=== PATIENT | female | born 1960 | race Caucasian/White ===

== ENCOUNTER 2017-03-23 08:11 | Outpatient (CLI) | payer BC, OTHER ==
--- NOTE | 2017-03-23 10:00 | MRI ---
MRI OF THE CERVICAL SPINE: DATE: 03/23/17. COMPARISON: None. HISTORY: Migraine headaches, neck pain. TECHNIQUE: Multiplanar, multisequence MR imaging of the cervical spine is obtained without contrast. FINDINGS: The sagittal STIR imaging demonstrates no focal area of osseous marrow edema. There is moderate degenerative change at the atlantoaxial interspace. The craniocervical junction and cervicothoracic junction appear intact. Vertebral body height and alignment appears within normal limits. No prevertebral soft tissue swelli ng is seen. C2-3: Intervertebral disk height and signal intensity is within normal limits with no significant ce ntral canal or neural foraminal stenosis. C3-4: No central canal stenosis. There is mild left-sided facet hypertrophy. No significant neural foraminal stenosis noted on either side. C4-5: Unremarkable. C5-6: There is minimal disk bulge with no significant central canal stenosis. There is mild left-si ded facet hypertrophy with no significant neural foraminal stenosis on either side. C6-7: Intervertebral disk height and signal intensity is within normal limits with no significant ce ntral canal or neural foraminal stenosis. C7-T1: Intervertebral disk height and signal intensity appears within normal limits. Mild bilateral facet hypertrophy with no significant neural foraminal stenosis on either side. There is no focal area of abnormal signal intensity identified within the cervical cord. IMPRESSION: No significant central canal or neural foraminal stenosis noted within the cervical spine. POS: [facility]
== END 2017-03-23 08:12 | disposition home or self-care (01) ==
LOC: SCSMRI 08:11
PROVIDERS: ATTEND Psychiatry & Neurology Neurology
DX: G43.109 Migraine with aura, not intractable, without status migrainosus (principal)
CPT/HCPCS: 72141

== ENCOUNTER 2018-11-16 10:33 | Outpatient (CLI) | payer BC, OTHER ==
--- NOTE | 2018-11-16 13:25 | MRI ---
MRI OF THE LEFT WRIST WITHOUT CONTRAST: 11/16/18 HISTORY: S62.025D. Pain. Closed nondisplaced fracture of middle third of scaphoid of left wrist with routine healing. M65.4 - De Quervain's tenosynovitis. COMPARISON: None. FINDINGS: COMPARISON: None. FINDINGS: BONES: Scaphoid is without fracture. No contusion. Distal radius is intact. Ulna is intact. No fracture. Proximal and distal carpal rows are without contusion. The hook of the hamate and tubercle of the tra pezium are intact. TRIANGULAR FIBROCARTILAGE: Central perforation of the triangular fibrocartilage. Normal ulnar styloid and foveal insertion. Meni scus homologue is intact. TENDONS: Normal location of the extensor carpi ulnaris. Subsheath is intact. There is extensive tenosynovitis of the first extensor compartment centered at the level of the radial styloid extending distally for 3 cm. There is interstitial type tear of the adductor pollicis longus tendon with fraying. MUSCLES: The muscle signal and bulk is normal. SOFT TISSUES: There is a ganglion pseudocyst emanating from the volar capsule near the radial styloid process which is multiseptated measuring a total of nearly 2 cm in transverse x 4 mm in AP dimension x a craniocau edy length of 1.3 cm. IMPRESSION: 1. Intact scaphoid without fracture. No evidence of a healing fracture. 2. High grade De Quervain's tenosynovitis extending from the level of the radial styloid extendi ng distally 2 to 3 cm. There is interstitial type tearing of the abductor pollicis longus tendon. 3. Moderate sized volar ganglion cyst as described. 4. Central perforation of the triangular fibrocartilage. POS: HOME
== END 2018-11-16 10:34 | disposition home or self-care (01) ==
LOC: SCSMRI 10:33
PROVIDERS: ATTEND Orthopaedic Surgery Hand Surgery
DX: S62.025D Nondisplaced fracture of middle third of navicular [scaphoid] bone of left wrist, subsequent encounter for fracture with routine healing (principal); S41.152A Open bite of left upper arm, initial encounter; M65.4 Radial styloid tenosynovitis [de Quervain]

== ENCOUNTER 2018-12-28 06:38 | Outpatient (CLI) | payer BC, OTHER ==
[2018-12-28 10:46] LABS: #Basophils 0.1 thou/uL (0.0-0.2); #Eosinphils 0.2 thou/uL (0.0-0.7); #Lymphocytes 1.6 thou/uL (1.20-3.40); #Monocytes 0.6 thou/uL (0.11-0.59); #Neutrophils 3.8 thou/uL (1.40-6.50); %Eosinophils 3.3 % (0.0-10.0); %Lymphocytes 25.1 % (21.0-51.0); %Monocytes 10.2 % (0.0-10.0); %Neutrophils 60.5 % (42.0-75.0); Hemoglobin 12.9 g/dL (12.0-16.0); Mean Corpuscular HGB CONC 34.4 g/dL (32.0-36.0); Mean Platelet Volume 8.3 fL (7.4-10.4); Platelet Count 237 thou/uL (130-400); RBC Distribution Width 11.7 % (11.5-14.5); Red Blood Cell (RBC) Count 4.05 mill/uL (4.20-5.40); White Blood Cell (WBC) Count 6.2 thou/uL (4.8-10.8)
--- NOTE | 2018-12-28 10:58 | RAD ---
XR Chest Pa Lat STANDARD HISTORY: Preoperative evaluation COMPARISON: None FINDINGS: The heart size is normal. The lungs are well expanded without focal areas of consolidation, pneumothorax or pleural effusions. There is evidence of old granulomatous disease in the mediastinal lymph nodes. IMPRESSION: No radiographic evidence of acute cardiopulmonary process.
[2018-12-28 11:09] LABS: Anion Gap 12 mmol/L (10-20); BUN (Urea Nitrogen) 9 mg/dL (9.8-20.1); Calc. Creatinine Clearance 0 mL/min (70-130); Calcium 10.1 mg/dL (7.8-10.44); Carbon Dioxide 27 mmol/L (22-29); Chloride 96 mmol/L (98-107); Estimated GFR-MDRD 78; Glucose 106 mg/dL (70-105); Potassium 3.8 mmol/L (3.5-5.1); Sodium 131 mmol/L (136-145)
[2018-12-28 11:14] LABS: Prothrombin Time 12.9 SEC (12.0-14.7)
== END 2018-12-28 06:39 | disposition home or self-care (01) ==
LOC: LABBT 06:38
PROVIDERS: ATTEND Orthopaedic Surgery Hand Surgery
DX: Z01.818 Encounter for other preprocedural examination (principal); M65.4 Radial styloid tenosynovitis [de Quervain]; M67.432 Ganglion, left wrist; S63.592A Other specified sprain of left wrist, initial encounter
CPT/HCPCS: 71046; 80048; 85025; 85610; 93005; 93010

== ENCOUNTER 2018-12-30 10:08 | Day surgery (SDC) | payer BC, OTHER ==
[2018-12-28 09:29] VITALS: BMI 27.1
[~2018-12-30 10:08] MED LIST: Bupivacaine HCl 0.5%/Epinephrine 1:200,000/PF 30 ml Vial ONE; PROPOFOL 200 MG/20 ML VIAL ONE; ePHEDrine 50 MG/ML VIAL ONE
[2018-12-30] MEDS ORDERED: Fentanyl 100 MCG/2 ML VIAL ONE (12:11)
[2018-12-30] MEDS ORDERED: Midazolam HCl 2 mg/2 ml Vial ONE (12:11)
[2018-12-30] MEDS ORDERED: HYDROmorphone 0.5 MG/0.5 ML SYRINGE ONE (14:19)
[2018-12-30] MEDS ORDERED: Lidocaine 2% Jelly 5 ML TUBE ONE (14:19)
[2018-12-30] MEDS ORDERED: Propofol 1,000 MG/100 ML VIAL IV ONE ×2 (14:20)
[2018-12-30] MEDS ORDERED: Clindamycin/D5W 600 mg/50 ml Premix Bag ONE (14:31)
[2018-12-30] MEDS ORDERED: EPINEPHrine 1 MG/ML AMP ONE (14:36)
[2018-12-30] MEDS ORDERED: Bupivacaine PF 0.5% 30 ML VIAL ONE (14:36)
[2018-12-30] MEDS ORDERED: Bacitracin Zinc Ointment 30 gm TUBE ONE (14:36)
[2018-12-30] MEDS ORDERED: Betamet Acet/Betamet Na Ph 30 MG/5 ML VIAL ONE (14:36)
[2018-12-30] MEDS ORDERED: Ketorolac Tromethamine 30 MG/ML VIAL ONE (16:42)
--- NOTE | 2018-12-30 23:40 | OP ---
DATE OF PROCEDURE: 12/30/2018 PREOPERATIVE DIAGNOSES: 1. Left wrist first dorsal compartment tenosynovitis. 2. Left volar ganglion cyst, left central triangular fibrocartilage complex tear, small with moderate wrist synovitis. PROCEDURE PERFORMED: 1. Left wrist arthroscopic synovectomy. 2. Left wrist arthroscopic triangular fibrocartilage debridement, central tear started off less than 4 mm. 3. Left wrist first dorsal compartment release. 4. Left wrist palmar ganglion excision. 5. Left wrist extensor compartment tenosynovectomy, radical first dorsal compartment. TOURNIQUET TIME: 25 minutes. TOTAL ESTIMATED BLOOD LOSS: 10 mL. SPECIMEN: I sent a specimen of a small ganglion cavity from the scapholunate palmar region and the patient had a specimen sent from the first dorsal compartment from the extensor radical tenosynovectomy. INDICATION: The patient with wrist pain, initially over the first dorsal compartment, and then we investigated a ganglion and possible ulnar-sided wrist pain, found to have a small central perforation without ulnocarpal impingement. Failed conservative treatment and thus the operative intervention was indicated. She reported that over the last 3 days the ganglion had disappeared but had been there as late as 3 days prior. DESCRIPTION OF PROCEDURE: After successful general endotracheal anesthesia, the limb was prepped and draped. Tourniquet was not inflated initially having placed the wrist after sterile prep and drape in a sterile tower for arthroscopic procedure. We outlined a panoramic view. The patient then had the standard portal established, 6U, 6R, 3, 4 and panoramic view revealed marked synovitis even in the radiocarpal joint. This required arthroscopic synovectomy that was complete throughout the compartments of the wrist. Midcarpal area negative. The patient then had evaluation with viewing from the arthroscopic 6R portal alternating with 6U and we found a 3-4 mm central tear that was barely complete and we then trimmed along with associated synovitis and chondral fronds to a stable rim. We probed and there was no evidence of any ulnocarpal impingement, so we did not perform any further bone work. We removed the arthroscopic evaluation equipment, closed the portals with interrupted 4-0 nylon simple pattern and then we removed the wrist from its tower, inflated the tourniquet after exsanguination of the limb to 250 mmHg pressure and then approached the dorsal compartment first. The incision was made more dorsal central to allow room for the de Quervain procedure which would come next, carried through skin and subcutaneous tissue, identified the superficial and radial nerve branch and protected them. We then released the retinaculum in its midline and found to be very tight in the central portion. We then lifted up what was 3 tendons and they were found to have marked tenosynovitis, so we performed an extensor tendon radical tenosynovectomy of the entire first dorsal compartment (three sleeve). At this point, we then moved FCR radial aspect. We carried the incision through skin and subcutaneous tissue, and after the scope, we could see a small fluid sac underneath the radial artery that was approximately 3-4 mm. We the artery as well as possible, removed adventitia around the flexor carpi radialis, and found in the cavity of the cyst. We then followed this down through the scapholunate joint, especially on its ulnar aspect, made an arthrotomy, removed the cavity and then left this open. We then placed Celestone in both these 2 areas equal 2.5 mL, closed them both and I released the tourniquet and obtained hemostasis with interrupted 4-0 nylon and the patient left the operating room with a thumb spica splint and no evidence of anesthetic or operative complication. Job ID: [id number]
== END 2018-12-30 17:56 | disposition home or self-care (01) ==
LOC: SDC 10:08
PROVIDERS: ATTEND Orthopaedic Surgery Hand Surgery
PROC: 0LB60ZZ Excision of Left Lower Arm and Wrist Tendon, Open Approach (ICD-10-PCS; principal; 2018-12-30)
PROC: 0RBP4ZZ Excision of Left Wrist Joint, Percutaneous Endoscopic Approach (ICD-10-PCS; principal; 2018-12-30)
DX: S63.592A Other specified sprain of left wrist, initial encounter (principal); M65.4 Radial styloid tenosynovitis [de Quervain]; M67.432 Ganglion, left wrist; Z79.899 Other long term (current) drug therapy; Z88.0 Allergy status to penicillin; Z88.2 Allergy status to sulfonamides; Z88.5 Allergy status to narcotic agent; Z88.8 Allergy status to other drugs, medicaments and biological substances; Z91.012 Allergy to eggs; Z91.013 Allergy to seafood; Z91.018 Allergy to other foods; Z91.040 Latex allergy status
CPT/HCPCS: 88304; J0171; J0670; J0702; J1170; J1885; J2250; J2704; J3010; J3490; S0020

== ENCOUNTER 2019-05-12 09:06 | Outpatient (CLI) | payer BC, OTHER ==
--- NOTE | 2019-05-12 13:07 | CT ---
CT Upper Ext Lt WO Con History: Fracture of the scaphoid Comparison: None. Findings: Nondisplaced sagittally fracture distal pole scaphoid. No cortical step-off. The fracture e xtends to the scaphoid trapezium joint. There is a subtle oblique fracture through the proximal pole of the scaphoid. Mild negative ulnar variance. No subluxation of the extensor carpi ulnaris. No extensor or flexor ten don tear is appreciated. Impression: 1. Subtle linear lucency suggesting nondisplaced sagittally oriented fracture proximal pole scaphoid without significant sclerosis of the proximal fragment. 2. Subtle linear lucency suggesting nondisplaced sagittally oblique fracture through the distal pole scaphoid extending into the scaphoid trapezium joint.
== END 2019-05-12 09:07 | disposition home or self-care (01) ==
LOC: SCSCT 09:06
PROVIDERS: ATTEND Orthopaedic Surgery Hand Surgery
DX: S62.025A Nondisplaced fracture of middle third of navicular [scaphoid] bone of left wrist, initial encounter for closed fracture (principal)